=== PATIENT | female | born 1960 | race American Indian/Alaskan Native ===

== ENCOUNTER 2019-06-26 06:05 | Day surgery (SDC) | payer OTHER ==
[~2019-06-26 06:05] MED LIST: ANCEF/STERILE WATER 2 GM/20 ML IV NR
[2019-06-26] MEDS ORDERED: NACL BACTERIOSTATIC INFILTRATI ONE (06:52)
[2019-06-26] MEDS ORDERED: DILAUDID IV PRN (07:35)
[2019-06-26] MEDS ORDERED: ZOFRAN IV PRN (07:35)
--- NOTE | 2019-06-26 07:35 | Anesthesia Consultation ---
Anesthesia Consult and Med Hx Date of service: 06/26/19 - Airway Anesthetic Teeth Evaluation: Good ROM Head & Neck: Adequate Mental/Hyoid Distance: Adequate Mallampati Class: Class II Intubation Access Assessment: Good - Pulmonary Exam CTA: Yes - Cardiac Exam Cardiac Exam: RRR - Pre-Operative Health Status ASA Pre-Surgery Classification: ASA2 Proposed Anesthetic Plan: General - Pulmonary Hx Smoking: No Hx Sleep Apnea: No (KAMILLA PRE SCREEN LOW RISK.) - Cardiovascular System Hx Hypertension: No Hx Heart Attack/AMI: No - Central Nervous System Hx Psychiatric Problems: No - Hematic Hx Anemia: No - Other Systems Hx Cancer: Yes
--- NOTE | 2019-06-26 07:35 | Anesthesia Day of Surgery ---
Anesthesia Day of Surgery - Day of Surgery Patient Examined: Yes Patient H&P Reviewed: Yes Patient is NPO: Yes
[2019-06-26] MEDS ORDERED: XYLOCAINE 1% 20 mL ONE ×2 (08:04→08:43)
[2019-06-26] MEDS ORDERED: LACTATED RINGERS 1,000 ML IV SCH (08:15)
[2019-06-26] MEDS ORDERED: XYLOCAINE MPF 2% ONE (08:43)
[2019-06-26] MEDS ORDERED: SUBLIMAZE ONE (08:43)
[2019-06-26] MEDS ORDERED: DIPRIVAN 10 MG/ML IV ONE (08:43)
[2019-06-26] MEDS ORDERED: DECADRON ONE (08:43)
[2019-06-26] MEDS ORDERED: LACTATED RINGERS 1,000 ML ONE (08:43)
[2019-06-26] MEDS ORDERED: ZOFRAN ONE (08:43)
[2019-06-26] MEDS ORDERED: MARCAINE 0.25% INFILTRATI ONE ×2 (08:43→09:23)
--- NOTE | 2019-06-26 09:12 | Mammography Report ---
NEEDLE LOCALIZATION AND HOOKWIRE PLACEMENT RIGHT BREAST History: For excision of a papilloma. Comparison: 03/22/2019 Procedure: After informed consent was obtained, the right breast was prepped in sterile fashion. Usin g mammographic guidance and 1% lidocaine for anesthesia, a 5 cm Oates hookwire was placed from a la teral approach to localize a biopsy clip. Satisfactory placement was confirmed on orthogonal views an d the needle was removed. The patient tolerated the procedure well and there were no apparent complications. Impression: Successful uncomplicated hookwire placement right breast. Signer Name: Po Hemphill MD Signed: 06/26/2019 9:08 AM Workstation Name: [id number]
[2019-06-26] MEDS ORDERED: TORADOL ONE (09:19)
[2019-06-26] MEDS ORDERED: XYLOCAINE 1% 20 mL INFILTRATI ONE (09:23)
[2019-06-26] MEDS ORDERED: WATER FOR IRRIG STERILE IR ONE (09:24)
--- NOTE | 2019-06-26 10:20 | Short Stay Summary ---
Short Stay Documentation Date of service: 06/26/19 - History H&P: obtained from office - Allergies and Medications Current Medications: Allergies No Known Allergies Allergy (Unverified 01/09/15 08:31) Home Medications Medication Instructions Recorded Confirmed Last Taken Type Pepcid 20 mg PO DAILY 06/15/19 06/26/19 06/25/19 08:00 History HYDROcodone/APAP 5-325 [[place] 1 each PO Q6HR PRN #10 tablet 06/26/19 Unknown Rx 5/325] Active Medications Cefazolin Sodium (Ancef/Sterile Water 2 Gm/20 Ml) 2 gm IV PREOP NR Stop: 06/26/19 23:59 Hydromorphone HCl (Dilaudid) 0.5 mg IV Q10MIN PRN PRN Reason: Pain , Severe (7-10) Stop: 06/26/19 20:00 Lactated Ringer's (Lactated Ringers) 1,000 mls @ 75 mls/hr IV DIRECT KING Ondansetron HCl (Zofran) 4 mg IV ONCE PRN PRN Reason: Nausea And Vomiting - Brief post op/procedure progress note Date of procedure: 06/26/19 Pre-op diagnosis: Right breast Papilloma of the upper outer quadrant Post-op diagnosis: same Procedure: Right breast needle Localized excisional biopsy upper outer quadrant Anesthesia: MARITZAA Surgeon: SHAHRZAD SORENSON Retirement Specialist: TOBY SHELBY ([facility] Estimated blood loss: minimal Pathology: list Specimen disposition: to lab Condition: stable - Disposition Condition at discharge: Stable Disposition: DC-01 TO HOME OR SELFCARE Short Stay Discharge Plan Activity: no driving until cleared by PCP, other (No heavy lifting more than 5 lbs) Weight Bearing Status: Full Weight Bearing Diet: regular Wound: keep clean and dry, per your surgeon's advice Special Instructions: no heavy lifting Follow up with: NAMRATA CARRASCO MD [Primary Care Provider] - 7 Days Prescriptions: HYDROcodone/APAP 5-325 [[place] 5/325] 1 each PO Q6HR PRN #10 tablet PRN Reason: Pain
--- NOTE | 2019-06-26 10:21 | Operative Report ---
Operative Report Operative Report: Operative Report: Date of Service: June 26, 2019 Preoperative diagnosis: Right breast papillioma of the upper outer quadrant Postoperative diagnosis: Same Procedure: Right breast papilloma excisional biopsy of the upper outer quadrant Surgeon: Elizabeth Ma M.D. Greenskeeper: Brynn Painting M.D. Anesthesia: General Findings: Right breast papilloma excisional biopsy; radiograph specimen with clip and wire present Complications: None Drains: None Estimated blood loss: Minimal Disposition: PACU in good condition Indication for operative procedure: This is a 58-year-old lady high risk for breast cancer given family historyk with recent abnormal right mammogram and b reast MRI. Right breast MRI biopsy at the 9:00 position right breast with findings of a papilloma. Recommendations are for excisional biopsy to rule out malignancy given benign high risk breast cancer lesion. Patient wished to proceed with the above procedure. The patient was procedure in detail: Radiology placed wire to localize area of concern at location of clip. The patient was taken to the operating room and was laid supine. General anesthesia was administered. The right breast was prepped and draped in the normal sterile operative fashion. Timeout was performed. The wire was identified. A lateral breast incision was made around the 9:00 position with a 15 blade knife with dissection taken down to the subcutaneous tissues. First began raising of the medial flap with removal of wire from the skin and dissection carried down posteriorly, followed by raising of the superior, lateral, and inferior flaps being raised and taken down posteriorly. The wire was not encountered. The area of concern was then removed with the aid of the Bovie cautery. The specimen was sent to radiology with radiograph specimen with clip and wire present and then sent to pathology. Hemostasis was obtained using the Bovie cautery. Breast cavity was anesthesized with 1% lidocaine and quarter percent marcaine. The breast cavity was irrigated and suctioned. The deep breast tissues were approximated and closed using interrupted 3-0 Vicryl and skin brought together and closed using a running 4-0 Monocryl followed by dermabond. She tolerated surgery very well and was awakened from anesthesia without any complication and transported to PACU in good condition.
[2019-06-26] MEDS ORDERED: NORCO 5/325 PO PRN (10:43)
[2019-06-26 11:43] VITALS: BP 115/68
--- NOTE | 2019-06-26 15:48 | Mammography Report ---
SPECIMEN RADIOGRAPH RIGHT BREAST INDICATION: POST EC BX. COMPARISON: 03/22/2019 FINDINGS: The targeted lesion with a biopsy clip and a hookwire are included in the specimen. IMPRESSION: Excision of the targeted lesion. Signer Name: Po Hemphill MD Signed: 06/26/2019 3:44 PM Workstation Name: [id number]
--- NOTE | 2019-06-26 17:55 | Post Anesthesia Evaluation ---
- Post Anesthesia Evaluation Patient Participated: Yes Airway Patent: Yes Stable Respiratory Function: Yes Nausea/Vomiting: No Temp > 96.8F: Yes Pain Manageable: Yes Adequeate Hydration: Yes Anesthesia Complications: No Block Receding Appropriately: Not Applicable Patient on Ventilator: No
== END 2019-06-26 11:50 | disposition home or self-care (01) ==
LOC: OR 06:05
PROVIDERS: ATTEND Surgery
DX: D05.11 Intraductal carcinoma in situ of right breast (principal); E78.00 Pure hypercholesterolemia, unspecified; G43.909 Migraine, unspecified, not intractable, without status migrainosus; K21.9 Gastro-esophageal reflux disease without esophagitis; M17.0 Bilateral primary osteoarthritis of knee; M16.0 Bilateral primary osteoarthritis of hip; Z98.890 Other specified postprocedural states; Z79.899 Other long term (current) drug therapy; Z98.891 History of uterine scar from previous surgery; Z87.440 Personal history of urinary (tract) infections
CPT/HCPCS: 19281; 19301; 76098; 88307; 88341; 88342; J0690; J1100; J1885; J2405; J2704; J3010; J7120

== ENCOUNTER 2019-09-13 08:22 | Observation (INO) | payer OTHER ==
--- NOTE | 2019-09-07 14:47 | Anesthesia Day of Surgery ---
Anesthesia Day of Surgery - Day of Surgery Patient Examined: Yes Patient H&P Reviewed: Yes Patient is NPO: Yes
--- NOTE | 2019-09-07 14:47 | Anesthesia Consultation ---
Anesthesia Consult and Med Hx Date of service: 09/07/19 - Airway Anesthetic Teeth Evaluation: Good ROM Head & Neck: Adequate Mental/Hyoid Distance: Adequate Mallampati Class: Class II Intubation Access Assessment: Good - Pulmonary Exam CTA: Yes - Cardiac Exam Cardiac Exam: RRR - Pre-Operative Health Status ASA Pre-Surgery Classification: ASA3 Proposed Anesthetic Plan: General Nerve Block: PEC block - Pulmonary Hx Smoking: No Hx Sleep Apnea: No (KAMILLA PRE SCREEN LOW RISK.) - Central Nervous System Hx Psychiatric Problems: Yes - Hematic Hx Anemia: No - Other Systems Hx Cancer: Yes - Additional Comments Anesthesia Medical History Comments: GERD, Arthritis , Breast CA for GA and PEC block
[~2019-09-13 08:22] MED LIST changes: -ANCEF/STERILE WATER 2 GM/20 ML IV NR; +BACITRACIN 50,000 UNIT VIAL IR ONE; +CELECOXIB 200 MG CAP PO NR; +GABAPENTIN 300 MG CAP PO NR; +GENTAMICIN 40 MG/ML VIAL 2 ML IV ONE; +LACTATED RINGERS 1,000 ML IV SCH; +METHYLENE BLUE 50 MG/10 ML AMP IRRIGATION ONE; +MIDAZOLAM 2 MG/2 ML INJ IV NR; +SODIUM CHLORIDE 0.9% IRR 1,500 ML BOTTLE IR ONE; +WATER FOR IRRIG STERILE 1,500 ML BOTTLE IR ONE; +ceFAZolin 1 GM VIAL IV ONE; +ceFAZolin/Water 2 GM/20 ML 2 GM/20 ML SYRINGE IV NR; +fentaNYL 100 MCG/2 ML INJ IV ONE; +fentaNYL 100 MCG/2 ML INJ IV PRN
[2019-09-13] MEDS ORDERED: dexAMETHasone 4 MG/ML VIAL ONE (09:31)
[2019-09-13] MEDS ORDERED: BUPIVACAINE-EPINEPHRINE/PF 0.25%-1:200,000 (30 ML) VIAL INFILTRATI ONE (09:32)
[2019-09-13] MEDS ORDERED: MIDAZOLAM 2 MG/2 ML INJ ONE (09:38)
[2019-09-13] MEDS ORDERED: LIDOCAINE MPF (2%) 20 MG/1 ML VIAL 5 ML ONE (11:06)
[2019-09-13] MEDS ORDERED: ROCURONIUM 50 MG/5 ML INJ IV ONE (11:06)
[2019-09-13] MEDS ORDERED: HYDROmorphone 1 MG/1 ML INJ ONE (11:06)
[2019-09-13] MEDS ORDERED: PROPOFOL 200 MG/20 ML VIAL IV ONE (11:06)
[2019-09-13] MEDS ORDERED: ceFAZolin 1 GM VIAL ONE (11:27)
[2019-09-13] MEDS ORDERED: SODIUM CHLORIDE 0.9% 1000 ML 1,000 ML ONE (11:27)
[2019-09-13] MEDS ORDERED: GENTAMICIN 40 MG/ML VIAL 2 ML ONE (11:27)
[2019-09-13] MEDS ORDERED: METHYLENE BLUE 50 MG/10 ML AMP ONE ×2 (11:28→14:57)
[2019-09-13] MEDS ORDERED: BACITRACIN 50,000 UNIT VIAL ONE (11:28)
[2019-09-13] MEDS ORDERED: SODIUM CHLORIDE P/F VIAL 10 ML 10 ML ONE ×2 (11:29→11:43)
[2019-09-13] MEDS ORDERED: WATER FOR INJ Sterile (PF) 10 ML ONE (11:29)
[2019-09-13] MEDS ORDERED: PHENYLEPHRINE/NS 1,000 MCG/10 ML SYRINGE (OR USE) IV ONE (12:12)
[2019-09-13] MEDS ORDERED: METHYLENE BLUE 50 MG/10 ML AMP IRRIGATION ONE ×2 (12:14→16:55)
[2019-09-13] MEDS ORDERED: SODIUM CHLORIDE 0.9% P/F 10 ML VIAL INFILTRATI ONE (12:14)
[2019-09-13] MEDS ORDERED: LACTATED RINGERS 1,000 ML ONE ×3 (13:44→18:08)
--- NOTE | 2019-09-13 16:12 | Anesthesia Day of Surgery ---
Anesthesia Day of Surgery - Day of Surgery Patient Examined: Yes Patient H&P Reviewed: Yes Patient is NPO: Yes
[2019-09-13] MEDS ORDERED: HYDROmorphone 1 MG/1 ML INJ IV PRN (16:13)
[2019-09-13] MEDS ORDERED: SODIUM CHLORIDE 0.9% IRR 1,500 ML BOTTLE IR ONE (16:52)
[2019-09-13] MEDS ORDERED: BACITRACIN 50,000 UNIT VIAL IR ONE (16:53)
[2019-09-13] MEDS ORDERED: ceFAZolin 1 GM VIAL IV ONE (16:53)
[2019-09-13] MEDS ORDERED: GENTAMICIN 40 MG/ML VIAL 2 ML IV ONE (16:53)
[2019-09-13] MEDS ORDERED: ACETAMINOPHEN 325 MG TAB PO PRN (17:03)
[2019-09-13] MEDS ORDERED: METOCLOPRAMIDE 10 MG TAB PO PRN (17:03)
[2019-09-13] MEDS ORDERED: diphenhydrAMINE 25 MG CAP PO PRN (17:03)
[2019-09-13] MEDS ORDERED: ONDANSETRON 4 MG/2 ML INJ IV PRN (17:03)
[2019-09-13] MEDS ORDERED: MORPHINE 2 MG/1 ML INJ IV PRN (17:06)
--- NOTE | 2019-09-13 17:19 | Operative Report ---
Operative Report Operative Report: Operative Report: Date of Service: September 13, 2019 Preoperative diagnosis: Right breast cancer of the upper outer quadrant Postoperative diagnosis: Same Procedure: Right total mastectomy with sentinel lymph node biopsy and left total mastectomy Surgeon: Elizabeth Ma M.D. Donor Center Technician: Brynn Painting M.D. Anesthesia: Gen. Findings: Right total mastectomy; 1 sentinel lymph node identified and negative for malignancy on frozen section of pathology Complications: None Drains: Per plastic surgery Estimated blood loss: 100 cc Disposition: Plastic surgery proceeded with bilateral tissue expanders Indications for operative procedure: This is a 58-year-old lady with newly diagnosed Stage 0 right breast cancer. She recently underwent a right breast excisional biopsy for papilloma of the upper outer quadrant with findings of DCIS and positive anterior margin and close lateral and medial margin. She wanted to proceed with a prophylactic left mastectomy and right total mastectomy and placement of bilateral tissue expanders in conjunction with plastic surgery. She wished to proceed with the above procedure. Procedure in detail: The patient was taken to the operating room and was placed supine. Gen. anesthesia was administered. The right nipple was injected with radioisotope and 1 cc of methylene blue. Bilateral chest and axillas were prepped and draped in the normal sterile operative fashion. Timeout was performed. Typical mastectomy incision markings were made. Attention was taken toward the left breast first. First began raising of the superior flap to the level of the clavicle superiorly and posteriorly to the pectoralis muscle. Followed by raising of the medial flap to the level of the sternum and posteriorly to the pectoralis muscle. Followed by raising of the lateral flap to the level of the latissimus dorsi muscle and taken down posteriorly. Followed by raising of the inferior flap to the level of the inframammary fold taken posterior to the pectoralis muscle. The mastectomy/breast was removed from the pectoralis muscle without incident. The specimen was appropriately marked and sent to pathology. Hemostasis was obtained. Attention was taken towards the right breast. The right breast scar around the 9:00 position was noted. A gamma probe was inserted into the axilla to identify the sentinel lymph node location with uptake noted. A skin incision was made with a 10 blade knife and dissection taken down to the subcutaneous tissues. First began raising of the superior flap to the level of the clavicle superiorly and posteriorly to the pectoralis muscle. Followed by raising of the medial flap to the level of the sternum and posteriorly to the pectoralis muscle. Followed by raising of the lateral flap to the level of the latissimus dorsi muscle and taken down posteriorly. Scar was noted around the 9:00 position at location of prior incision. The gamma probe was inserted into the axilla, the axillary fascia was opened and 1 axillary lymph node was identified that was dissected free and sent to pathology, lymph node was blue as well. Remaining counts were less than 10% of the highest SLN. Axillary lymph node was sent to pathology with findings negative for malignancy on frozen section. Then proceeded with raising of the inferior flap to the level of the inframammary fold taken posterior to the pectoralis muscle. The mastectomy/breast was removed from the pectoralis muscle without incident. The specimen was appropriately marked and sent to pathology. Plastic surgery then proceeded with placement of bilateral tissue expanders.
[2019-09-13] MEDS ORDERED: LACTATED RINGERS 1,000 ML IV SCH (18:00)
[2019-09-13] MEDS ORDERED: ONDANSETRON 4 MG/2 ML INJ ONE (18:14)
--- NOTE | 2019-09-13 18:39 | Operative Report ---
Operative Report Operative Report: Plastic Surgery Operative Note Surgeon: April Marin MD Preoperative Diagnosis: Acquired absence of the bilateral breasts; Malignant neoplasm of the right breast Postoperative Diagnosis: Same Procedure: Bilateral breast reconstruction with tissue stock fitter placement and FlexHD acellular dermal matrix. Mat Cutter: None Anesthesia: General EBL: 50cc Indications: This patient is a 58 year old AAF who is scheduled for a right mastectomy and desires a bilateral procedure so as to reduce risk for future malignancy. She is opting for reconstruction and after review of her options we determined that a tissue stock fitter placement with FlexHD dermal scaffold was her best option. We discussed her options including autologous tissue transfer and she was interested in the least complex reconstructive route possible. So we planned for tissue stock fitter placement with the use of acellular dermal matrix. The benefits as well as the risks of the procedure were discussed with the patient, including but not limited to infection, bleeding, hematoma, seroma, wound dehiscence, implant rupture, need for further surgery including planned stages and additional reconstruction. The patient understands and accepts these risks and desires to proceed with surgery. Procedure: After review of pertinent history and physical exam findings the patient was brought into the operating room and placed supine on the OR table. After induction of adequate general anesthesia the entire chest was prepped and draped in the usual sterile surgical fashion. To begin, Dr. Elizabeth Ma performed the mastectomies with a right sentinel lymph node biopsy and this procedure is dictated under a separate operative note. When this was completed, the breast reconstruction was started on the left breast. Using electrocautery we dissected a submuscular pocket behind pectoralis muscle to accommodate the tissue stock fitter. The pocket was thoroughly irrigated with triple antibiotic solution and we began creating the inframammary border using Flex HD perforated contoured, a total size of [id number], SN [id number]. The inferior aspect of the Flex HD was secured to the chest fascia using 2-0 PDS suture. This was followed by placement of the tissue stock fitter, Henefer Siltex 800cc (SN [id number]), in the submuscular pocket. Following this inferior border of the pectoralis fascia was secured to the superior border of the FlexHD also using 2- 0 PDS suture. The same exact procedure was repeated on the left side (FlexHD: [id number]; Henefer: [id number]). 15 Bengali ANTOINETTE drains were placed bilaterally and secured using 2-0 Nylon sutures. After checking for complete hemostasis, Lucia was placed in the right axilla where the lymph node was removed. We then began a 3-layered closure using 2-0 Monocryl and 3-0 Monoderm Quill [id number] suture. This was followed by Dermabond glue and then Telfa with tegaderm followed by bra binder. Patient was then awakened from general anesthesia and transferred to the recovery room instable condition. All sponge, needle and instrument counts were correct at the end of the case.
--- NOTE | 2019-09-13 19:51 | Post Anesthesia Evaluation ---
- Post Anesthesia Evaluation Patient Participated: Yes Airway Patent: Yes Stable Respiratory Function: Yes Nausea/Vomiting: No Temp > 96.8F: Yes Pain Manageable: Yes Adequeate Hydration: Yes Anesthesia Complications: No Block Receding Appropriately: No (Block for postop analgesia)
[2019-09-13] MEDS: DOCUSATE SODIUM 100 MG CAP PO SCH (21:17)
[2019-09-14] MEDS: oxyCODONE /ACETAMINOPHEN 5-325MG TAB PO PRN ×2 (04:58→10:25)
--- NOTE | 2019-09-14 07:47 | Progress Note ---
Assessment and Plan This is a 58 year old lady with Stage 0 right breast cancer of the UOQ, POD#1 connie total mastectomy with right SLNB and immediate connie TE placement. No acute events overnight. 1. Pain in good control. 2. Connie chest incisions healing well. 3. ANTOINETTE drain education. 4. OOB to hallway. 5. D/C planning for later today. Subjective Date of service: 09/14/19 Principal diagnosis: Stage 0 right breast cancer of the UOQ Interval history: POD#1 left tot mastectomy and right tot mastectomy with SLNB followed by immediate connie tissue strap setter placement. Objective - Constitutional Vitals: Vital Signs - 12hr 09/13/19 1109/13/19 19:58 20:00 20:54 Temperature 98.6 F 97.2 F L Pulse Rate 69 63 Pulse Rate [ 80 Right Radial] Respiratory 18 18 16 Rate Blood Pressure 140/94 118/72 Blood Pressure [Left] O2 Sat by Pulse 100 100 100 Oximetry 09/14/19 09/14/19 09/14/19 01:27 04:58 05:58 Temperature 97.8 F Pulse Rate 67 Pulse Rate [ Right Radial] Respiratory 18 18 18 Rate Blood Pressure 103/67 Blood Pressure [Left] O2 Sat by Pulse 99 Oximetry 09/14/19 06:29 Temperature Pulse Rate 72 Pulse Rate [ Right Radial] Respiratory 18 Rate Blood Pressure Blood Pressure 90/62 [Left] O2 Sat by Pulse Oximetry General appearance: Present: no acute distress - EENT Eyes: PERRL, EOM intact ENT: hearing intact, clear oral mucosa Ears: bilateral: normal - Neck Neck: supple, normal ROM - Respiratory Respiratory effort: normal - Breasts Breasts: other (connie incisions healing well, no hematoma; typical bruising postoperative; ANTOINETTE drains to suction) - Cardiovascular Rhythm: regular Extremities: no ischemia, pulses intact, pulses symmetrical, No edema, normal temperature, normal color, Full ROM - Gastrointestinal General gastrointestinal: Present: soft, non-tender, non-distended - Genitourinary Female genitourinary: deferred - Integumentary Integumentary: clear, warm, dry - Musculoskeletal Musculoskeletal: strength equal bilaterally - Neurologic Neurologic: CNII-XII intact, moves all extremities - Psychiatric Psychiatric: appropriate mood/affect, intact judgment & insight, memory intact, cooperative Medications & Allergies - Medications Allergies/Adverse Reactions: Allergies No Known Allergies Allergy (Verified 09/06/19 18:08) Home Medications: Home Medications Medication Instructions Recorded Confirmed Last Taken Type No Known Home Medications [No 09/06/19 09/06/19 Unknown History Reported Home Medications] Active Medications: Generic Name Dose Route Start Last Admin Trade Name Stormq PRN Reason Stop Dose Admin Acetaminophen 650 mg 09/13/19 17:03 Tylenol PO Q6H PRN Pain MILD(1-3)/Fever >100.5/FAYE Diphenhydramine HCl 25 mg 09/13/19 17:03 Benadryl PO Q8H PRN Itching Docusate Sodium 100 mg 09/13/19 22:00 09/13/19 21:17 Colace PO 100 mg BID KING Administration Fentanyl 100 mcg 09/13/19 06:00 09/13/19 10:55 Sublimaze IV 100 mcg ONCE PRN Administration sedation for nerve block Lactated Ringer's 1,000 mls @ 100 mls/hr 09/12/19 11:00 09/13/19 09:45 Lactated Ringers IV 100 mls/hr DIRECT KING Administration Lactated Ringer's 1,000 mls @ 125 mls/hr 09/13/19 18:00 09/14/19 06:35 Lactated Ringers IV 125 mls/hr DIRECT KING Administration Metoclopramide HCl 10 mg 09/13/19 17:03 Reglan PO Q6H PRN Nausea And Vomiting Morphine Sulfate 2 mg 09/13/19 17:06 Morphine IV Q4H PRN Pain, Moderate (4-6) Ondansetron HCl 4 mg 09/13/19 17:03 Zofran IV Q8H PRN N/V unrelieved by Reglan Oxycodone/Acetaminophen 1 tab 09/13/19 17:03 09/14/19 04:58 Percocet 5/325 PO 1 tab Q6H PRN Administration Pain, Moderate (4-6) Sodium Chloride 10 ml 09/13/19 17:03 Sodium Chloride Flush Syringe 10 Ml IV PRN PRN LINE FLUSH
[2019-09-14] MEDS: DOCUSATE SODIUM 100 MG CAP PO SCH (10:25)
[2019-09-14 17:46] VITALS: BP 101/64
== END 2019-09-14 17:34 | disposition home or self-care (01) ==
LOC: OR 08:22 → OB 17:03
PROVIDERS: ADMIT Surgery; ATTEND Surgery
DX: C50.411 Malignant neoplasm of upper-outer quadrant of right female breast (principal); E78.00 Pure hypercholesterolemia, unspecified; Z98.51 Tubal ligation status
CPT/HCPCS: 19303; 19357; 38525; 38792; 78800; 88307; 88309; 88331; 88333; 88342; A9541; C1789; G0378; J0690; J1100; J1170; J1580; J2250; J2370; J2405; J2704; J3010; J7030; J7120; Q4128; Q9968; 88341